=== PATIENT | male | born 1970 | race Caucasian/White ===

== ENCOUNTER 2024-08-30 22:00 | Emergency (ER) | payer OTHER ==
[~2024-08-30] VITALS: Ht 177.8 cm; Wt 81.7 kg
[~2024-08-30 22:00] MED LIST: Bactrim Ds Tab1 EACH PO; CEPH500 PO; PENVK500 PO; TRAM50 PO
[2024-08-30 22:28] VITALS: BP 152/111
[2024-08-30] MEDS ORDERED: Trimethoprim/Sulfamethoxazole DS Tab PO ONE (23:20)
[2024-08-30] MEDS ORDERED: SULTRIDS PO (23:58)
== END 2024-08-31 00:08 | disposition home or self-care (01) ==
LOC: ER 22:00
DX: L03.112 Cellulitis of left axilla (principal); F17.200 Nicotine dependence, unspecified, uncomplicated
CPT/HCPCS: 99284-25; A9270

== ENCOUNTER 2025-07-29 09:02 | Emergency (ER) | payer OTHER ==
[~2025-07-29] VITALS: Ht 172.7 cm; Wt 70.3 kg
[~2025-07-29 09:02] MED LIST changes: +SULTRIDS PO
[2025-07-29 09:24] VITALS: BP 126/90
[2025-07-29] MEDS ORDERED: OXYC5 PO (09:29)
[2025-07-29] MEDS ORDERED: CLIN300 PO (09:29)
== END 2025-07-29 09:52 | disposition home or self-care (01) ==
LOC: ER 09:02
DX: K04.7 Periapical abscess without sinus (principal)
CPT/HCPCS: 99282